=== PATIENT | female | born 1970 | race Caucasian/White ===

== ENCOUNTER 2017-05-01 09:35 | Emergency (ER) | payer OTHER ==
[2017-05-01] MEDS ORDERED: ULTRAM PO ONE (11:15)
[2017-05-01] MEDS ORDERED: MOTRIN PO ONE (11:15)
--- NOTE | 2017-05-01 11:45 | XRay Report ---
RIGHT KNEE, 4 views: History: Right knee pain and swelling. Recent patellar dislocation. There is normal bone mineralization. Moderate joint space narrowing and moderate marginal spurring is noted within the medial compartment. Minimal retropatellar spurring is identified. The lateral compartment is within normal limits. There is no evidence for fracture, bone lesion or large osteochondral defect. The sunrise view demonstrates a normal appearance of the patellofemoral relationship. A large joint effusion extensive suprapatellar bursa on the lateral image. IMPRESSION: Osteoarthritic changes. Joint effusion. No acute bony abnormality is appreciated.
[2017-05-01 12:06] LABS: Anion Gap 17 mmol/L; BUN/Creatinine Ratio 31.66; Basophils % (Auto) 1.2 % (0.0-1.8); Blood Urea Nitrogen 19 mg/dL (7-17); Calcium 9.2 mg/dL (8.4-10.2); Carbon Dioxide 23 mmol/L (22-30); Chloride 103.7 mmol/L (98-107); Eosinophils % (Auto) 3.2 % (0.0-4.3); Glucose 96 mg/dL (65-100); Hematocrit 44.3 % (30.3-42.9); Hemoglobin 14.6 gm/dl (10.1-14.3); Mean Corpuscular HGB Conc 33 % (30-34); Mean Corpuscular Hemoglobin 30 pg (28-32); Mean Corpuscular Volume 92 fl (79-97); Platelet Count 257 K/mm3 (140-440); Red Blood Count 4.83 M/mm3 (3.65-5.03); Red Cell Distribution Width 13.3 % (13.2-15.2); Sodium 140 mmol/L (137-145); White Blood Count 4.6 K/mm3 (4.5-11.0)
--- NOTE | 2017-05-01 12:22 | Emergency Department Report ---
ED Extremity Problem HPI - General Chief complaint: Extremity Injury, Lower Stated complaint: RT LEG SWOLLEN Time Seen by Provider: 05/01/17 10:12 Source: patient Mode of arrival: Ambulatory Limitations: No Limitations - History of Present Illness Initial comments: 47-year-old obese female presents to the hospital to complaints of right knee pain and swelling since last night. Patient states on occasion her patella subluxes laterally and spontaneously reduces when she is sitting or standing ( flexion and extension). While sitting in a chair yesterday she felt her patella displaced laterally then spontaneously popped back. Last night she developed swelling superiorly to her kneecap. She denies calf tenderness or lower extremity edema. Recent plane ride from [place] on the reported. No persistent chest pain, palpitations, fever, or shortness of breath. Severity scale (0 -10): 8 - Related Data Allergies Allergy/AdvReac Type Severity Reaction Status Date / Time No Known Allergies Allergy Unverified 05/01/17 09:51 ED Review of Systems ROS: Stated complaint: RT LEG SWOLLEN Other details as noted in HPI Comment: All other systems reviewed and negative Other: Constitutional: No fevers chills or weight loss Eyes: No eye pain visual changes or discharge ENT: No ear pain or throat pain Neck: Denies pain Respiratory: Denies cough wheezing shortness of breath Cardiovascular: Denies chest pain, palpitations, syncope GI: Denies abdominal pain, nausea, vomiting, diarrhea : Denies dysuria Musculoskeletal: Denies back pain Skin: Denies rash, lesions, erythema Neurologic: Denies headache, numbness, weakness Psychiatric: Denies suicidal ideation, hallucinations ED Past Medical Hx - Past Medical History Previous Medical History?: No - Surgical History Past Surgical History?: No - Social History Smoking Status: Never Smoker Substance Use Type: Alcohol ED Physical Exam - General Limitations: No Limitations - Other Other exam information: General: No limitations, patient is alert in no acute distress Head exam: Atraumatic, normocephalic Eyes exam: Normal appearance, pupils equal reactive to light, extraocular movements intact ENT: Moist mucous membrane, normal oropharynx Neck exam: Normal inspection, full range of motion, no meningismus nontender Respiratory exam: Clear to auscultation bilateral, no wheezes, rales, crackles Cardiovascular: Normal rate and rhythm, normal heart sounds Abdomen: Soft, nondistended, and nontender, with normal bowel sounds, no rebound, or guarding Extremity: Full range of motion, right suprapatellar swelling. Tenderness to patella. No warmth or erythema, no calf tenderness. No calf edema Back: Normal Inspection, full range of motion, no tenderness Neurologic: Alert, oriented x3, cranial nerves intact, no motor or sensory deficit Psychiatric: normal affect, normal mood Skin: Warm, dry, intact ED Course Vital Signs 05/01/17 09:52 Temperature 98.3 F Pulse Rate 45 L Respiratory 18 Rate Blood Pressure 156/90 O2 Sat by Pulse 98 Oximetry - Reevaluation(s) Reevaluation #1: 05/01/17 12:22 Patient received Motrin and tramadol for pain - Consultations Consultation #1: 05/01/17 12:32 case d/w Roxana cards regarding asymptomatic Bigemeny. Will call back after discussion with attending 05/01/17 12:40 Called back at this time with appointment. IG may really is anything significant and patient may warrant an outpatient echo ED Medical Decision Making - Lab Data Result diagrams: 05/01/17 11:35 05/01/17 11:35 Lab Results 05/01/17 05/01/17 Range/Units 11:35 11:35 WBC 4.6 (4.5-11.0) K/mm3 RBC 4.83 (3.65-5.03) M/mm3 Hgb 14.6 H (10.1-14.3) gm/dl Hct 44.3 H (30.3-42.9) % MCV 92 (79-97) fl MCH 30 (28-32) pg MCHC 33 (30-34) % RDW 13.3 (13.2-15.2) % Plt Count 257 (140-440) K/mm3 Lymph % (Auto) 37.5 H (13.4-35.0) % [place] % (Auto) 7.9 H (0.0-7.3) % Eos % (Auto) 3.2 (0.0-4.3) % Baso % (Auto) 1.2 (0.0-1.8) % Lymph # 1.7 (1.2-5.4) K/mm3 [place] # 0.4 (0.0-0.8) K/mm3 Eos # 0.1 (0.0-0.4) K/mm3 Baso # 0.1 (0.0-0.1) K/mm3 Seg Neutrophils % 50.2 (40.0-70.0) % Seg Neutrophils # 2.3 (1.8-7.7) K/mm3 Sodium 140 (137-145) mmol/L Potassium 4.0 (3.6-5.0) mmol/L Chloride 103.7 (98-107) mmol/L Carbon Dioxide 23 (22-30) mmol/L Anion Gap 17 mmol/L BUN 19 H (7-17) mg/dL Creatinine 0.6 L (0.7-1.2) mg/dL Estimated GFR > 60 ml/min BUN/Creatinine Ratio 31.66 % Glucose 96 (65-100) mg/dL Calcium 9.2 (8.4-10.2) mg/dL Magnesium 1.90 (1.7-2.3) mg/dL - EKG Data -: EKG Interpreted by Me (sinus 89 bigemeny, no stemi) - Radiology Data Radiology results: report reviewed (right knee x-ray, osteophytic changes. Joint effusion. No acute bony abnormality appreciated.) - Differential Diagnosis arthritis, patella subluxation, DVT, fracture, electrolyte abnl Critical Care Time: No Critical care attestation.: If time is entered above; I have spent that time in minutes in the direct care of this critically ill patient, excluding procedure time. ED Disposition Clinical Impression: Knee effusion, right, Arthritis, Bigeminy Patellar subluxation Qualifiers: Encounter type: initial encounter Laterality: right Qualified Code(s): S83.001A - Unspecified subluxation of right patella, initial encounter Disposition: DC- TO HOME OR SELFCARE Is pt being admited?: No Condition: Stable Instructions: Knee Effusion (ED), Osteoarthritis (ED), Patellar Dislocation (ED ) Additional Instructions: Take the Medication as needed for pain. EKG shows bigeminy which rarely represents any significant pathologic heart condition. An appointment has been made a review with the cement mixer for outpatient evaluation. Call the orthopedic surgeon provided for follow-up regarding any symptoms. Referrals: RAJESH BUNDY MD [Staff Physician] - 3-5 Days (orthopedic) HELEN ALTAMIRANO MD [Staff Physician] - 05/13/17 11:00 am (cement mixer) Forms: Work/School Release Form(ED) Time of Disposition: 12:41
[2017-05-01 13:08] VITALS: BP 162/99
== END 2017-05-01 13:09 | disposition home or self-care (01) ==
LOC: ED 09:35
DX: S83.001A Unspecified subluxation of right patella, initial encounter (principal); M25.461 Effusion, right knee; R00.8 Other abnormalities of heart beat; M19.90 Unspecified osteoarthritis, unspecified site; X58.XXXA Exposure to other specified factors, initial encounter; Y93.89 Activity, other specified; Y99.9 Unspecified external cause status; Y92.89 Other specified places as the place of occurrence of the external cause
CPT/HCPCS: 36415; 80048; 83735; 85025; 93005; 93010